=== PATIENT | female | born 1950 | race Caucasian/White ===

== ENCOUNTER 2018-09-10 18:19 | Emergency (ER) | payer MEDICARE, MEDICAID ==
[~2018-09-10] VITALS: Ht 154.9 cm; Wt 83.0 kg
[~2018-09-10 18:19] MED LIST: ASPI-1159 PO; ATEN100T PO; BENA40TA9 PO; DICL50TA9 PO; LIP40 PO; METO-385 PO; RANI150T7 PO
[2018-09-10] MEDS ORDERED: ACETAMINOPHEN 325MG TABLET PO ONE (20:15)
[2018-09-10 21:41] VITALS: BP 113/81
== END 2018-09-10 21:52 | disposition home or self-care (01) ==
LOC: ER 18:19
DX: R07.89 Other chest pain (principal); V49.59XA Passenger injured in collision with other motor vehicles in traffic accident, initial encounter; Y93.89 Activity, other specified; Y92.410 Unspecified street and highway as the place of occurrence of the external cause; I10 Essential (primary) hypertension
CPT/HCPCS: 71045; 93005; 99283

== ENCOUNTER 2018-09-18 14:28 | Emergency (ER) | payer MEDICARE, MEDICAID ==
[~2018-09-18] VITALS: Ht 154.9 cm; Wt 82.0 kg
[2018-09-18 15:14] VITALS: BP 132/72
[2018-09-18] MEDS ORDERED: TRAMADOL 50MG TABLET PO ONE (16:15)
[2018-09-18] MEDS ORDERED: IBUPROFEN 600MG TABLET PO ONE (16:30)
== END 2018-09-18 17:05 | disposition home or self-care (01) ==
LOC: ER 14:28
DX: S93.402A Sprain of unspecified ligament of left ankle, initial encounter (principal); E78.00 Pure hypercholesterolemia, unspecified; I10 Essential (primary) hypertension; M19.90 Unspecified osteoarthritis, unspecified site; Z79.899 Other long term (current) drug therapy; X58.XXXA Exposure to other specified factors, initial encounter; Y93.89 Activity, other specified; Y92.89 Other specified places as the place of occurrence of the external cause; Y99.8 Other external cause status
CPT/HCPCS: 73610; 99283